=== PATIENT | male | born 1985 | race Two or more races ===

== ENCOUNTER 2016-10-30 09:59 | Emergency (ER) | payer OTHER ==
--- NOTE | 2016-10-30 10:29 | ER Document Report ---
HPI - HPI Patient complains to provider of: r knee pain Onset: Yesterday Onset/Duration: Gradual Quality of pain: Achy Pain Level: 2 Context: Patient complains of right knee pain and swelling from his knee distally. Patient states that he did go on a hike 2 days ago but denies any specific injury. Patient states that he has noticed that his leg is swollen and painful when he attempts to bear weight. Patient does report that he just returned after a 28 hour car ride from [place]. Associated Symptoms: Other - r knee pain, swelling to RLE. denies: Chest pain, Nonproductive cough, Productive cough, Shortness of breath Exacerbated by: Standing, Walking Relieved by: Denies Similar symptoms previously: No Recently seen / treated by doctor: No - ROS ROS below otherwise negative: Yes Systems Reviewed and Negative: Yes All other systems reviewed and negative - CONSTITUTIONAL Constitutional: DENIES: Fever, Chills - NEURO Neurology: DENIES: Weakness - CARDIOVASCULAR Cardiovascular: DENIES: Chest pain - RESPIRATORY Respiratory: DENIES: Trouble Breathing, Coughing - MUSCULOSKELETAL Musculoskeletal: REPORTS: Extremity pain, Swelling - DERM Skin Color: Normal Skin Problems: None Past Medical History - General Information source: Patient - Social History Smoking Status: Current Every Day Smoker Frequency of alcohol use: Occasional Drug Abuse: None 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 IN LAST 30 DAYS: No - HEENT HEENT: Atraumatic, Normocephalic - NECK Neck: Normal Inspection - RESPIRATORY Respiratory: Breath Sounds Normal, No Respiratory Distress, Chest Non-Tender O2 Sat by Pulse Oximetry: 96 - CARDIOVASCULAR Cardiovascular: Regular Rate, Regular Rhythm, No Murmur Pulses: Normal: Dorsalis pedis - BACK Back: Normal Inspection - MUSCULOSKELETAL/EXTREMETIES Musculoskeletal/Extremeties: MAEW, Tender - right knee tenderness, only with standing, Edema - RLE swelling from knee distally - NEURO Level of Consciousness: Awake, Alert, Appropriate Motor/Sensory: No Motor Deficit, No Sensory Deficit - DERM Integumentary: Warm, Dry, No Rash Course - Re-evaluation Re-evalutation: 10/30/16 13:38 called to inquire about results of Doppler test, dr styles states that he will call back shortly 10/30/16 13:57 Dr Styles called report negative for DVT - Vital Signs Vital signs: Temp Pulse Resp BP Pulse Ox 98.2 F 96 16 135/85 H 96 10/30/16 10:01 10/30/16 10:01 10/30/16 10:01 10/30/16 10:01 10/30/16 10:01 - Diagnostic Test Radiology reviewed: Reports reviewed Discharge - Discharge Clinical Impression: Right leg swelling Right knee pain Qualifiers: Chronicity: acute Qualified Code(s): M25.561 - Pain in right knee Condition: Stable Disposition: HOME, SELF-CARE Instructions: Sprained Knee ([facility]), Use of Crutches ([facility]), Ice & Elevation ([facility]) , Oral Narcotic Medication ([facility]) Additional Instructions: Return immediately for any new or worsening symptoms Followup with your primary care provider, call tomorrow to make a followup appointment Prescriptions: Oxycodone HCl/Acetaminophen [Percocet 5-325 mg Tablet] 1 - 2 tab PO ASDIR PRN # 15 tablet PRN Reason: Referrals: [facility] ([facility]) [Provider Group] - Follow up as needed
[2016-10-30] MEDS ORDERED: IBUPROFEN 800 MG TABLET PO ONE (11:03)
--- NOTE | 2016-10-30 11:27 | RADIOLOGY REPORT (SQ) ---
EXAM DESCRIPTION: KNEE RIGHT 4 VIEWS COMPLETED DATE/TIME: 10/30/2016 11:14 am REASON FOR STUDY: r knee pain COMPARISON: None. NUMBER OF VIEWS: Four views. TECHNIQUE: AP, lateral, and both oblique radiographic images acquired of the right knee. LIMITATIONS: None. FINDINGS: MINERALIZATION: Normal. BONES: No acute fracture or dislocation. No worrisome bone lesions. JOINT: Large joint effusion. SOFT TISSUES: No soft tissue swelling. No radio-opaque foreign body. OTHER: No other significant finding. IMPRESSION: Large joint effusion. TECHNICAL DOCUMENTATION: JOB ID: [id number] [employer] All Rights Reserved
--- NOTE | 2016-10-30 13:59 | XCELERA REPORT ---
[address] [address] Lower Extremity Venous Evaluation Name: JOSHUA MABRY Age: 30 yrs Gender: Male : 1985 Patient Status: Emergency Patient Location: ER Study Date: 10/30/2016 11:26 AM Procedure: Color flow and duplex imaging of the veins of the right lower extremity as well as the left Common Femoral vein. Reason For Study: R leg swelling, hx 28 hr car trip Ordering Physician: RICHELLE WALKER Performed By: Natasha Cox Right Sided Venous Evaluation Normal vessel filling wall to wall, compression and augmentation as well as Colour flow down to the infrageniculate veins. Left Sided Venous Evaluation The left common femoral vein is fully compressible. Spontaneous and phasic flow is present in the left common femoral vein. Critical Findings Called in to Dr Sanford at about 1400. Interpretation Summary No duplex evidence of DVT or obstruction in the right lower extremity nor in the left Common Femoral vein. : RICHELLE WALKER > Star Nuñez
[2016-10-30 14:10] VITALS: BP 139/77
== END 2016-10-30 14:10 | disposition home or self-care (01) ==
LOC: ER 09:59
DX: M25.561 Pain in right knee (principal); M25.461 Effusion, right knee; M79.89 Other specified soft tissue disorders; F17.200 Nicotine dependence, unspecified, uncomplicated
CPT/HCPCS: 93971; 99284